=== PATIENT | male | born 1965 | race Two or more races ===

== ENCOUNTER 2018-11-09 07:29 | Day surgery (SDC) | payer OTHER ==
[~2018-11-09] VITALS: Ht 175.3 cm; Wt 119.0 kg
--- NOTE | 2018-11-09 08:55 | PREAC ---
Date/Time of Note Date/Time of Note DATE: 11/09/18 TIME: 08:54 Anesthesia Eval and Record Evaluation Time Pre-Procedure Interview DATE: 11/09/18 TIME: 08:54 Age 53 Sex male NPO: 8 hrs Preoperative diagnosis screening Planned procedure colonoscopy Past Medical History Past Medical History: Includes Cardio: Dyslipidemia GI: Obesity Surgery & Anesthesia Issues No known issue Meds Anticoagulation: No Beta Sara within 24 hr: No Reason Beta Sara not given: Pt. not on B-Sara Meds reviewed: Yes Allergies Coded Allergies: No Known Allergy (Unverified , 02/08/15) Allergies Reviewed: Yes Labs/Studies Labs Reviewed: Reviewed by anesthesiologist test: N/A Studies: ECG (n/a), CXR (n/a) Pre-procedure Exam Airway: Adequate mouth opening Mallampati: Mallampati I Teeth: Normal Lung: Normal Heart: Normal ASA Physical Status ASA physical status: 2 Emergency: None Planned Pain Management Parenteral pain med Pre-operative Attestations Prior to commencing anesthesia and surgery, the patient was re-evaluated, there was verification of: *The patient's identity *The results of appropriate recent lab work and preoperative vital signs *The above evaluation not changing prior to induction *Anesthetic plan, risk benefits, alternative and complications discussed with patient/family; questions answered; patient/family understands, accepts and wishes to proceed. LUCITA LOUIS MD Nov 09, 2018 08:55
[2018-11-09 08:56] VITALS: Ht 175.3 cm; Wt 119.0 kg
[2018-11-09] MEDS ORDERED: PROPOFOL 20 ML ONE (08:58)
[2018-11-09] MEDS ORDERED: FENTAnyl 50 MCG/ML VIAL ONE (08:58)
[2018-11-09] MEDS ORDERED: ATORVASTATIN (09:00)
[2018-11-09 09:06] VITALS: BP 125/63; PULSE 72; RESP 14
--- NOTE | 2018-11-09 10:08 | PAC ---
Date/Time of Note Date/Time of Note DATE: 11/09/18 TIME: 10:08 Post-Anesthesia Notes Post-Anesthesia Note Last documented vital signs Vital Signs Date Temp Pulse Resp B/P (MAP) Pulse Ox O2 O2 Flow FiO2 Time Delivery Rate 11/09/18 97.9 72 14 125/63 94 Room Air 09:06 (83) Activity: WNL Respiratory function: WNL Cardiovascular function: WNL Mental status: Baseline Pain reasonably controlled: Yes Hydration appropriate: Yes Nausea/Vomiting absent: No LUCITA LOUIS MD Nov 09, 2018 10:08
[2018-11-09 10:20] VITALS: BP 129/71; PULSE 71; RESP 20
== END 2018-11-09 11:29 | disposition home or self-care (01) ==
LOC: GIL 07:29
PROVIDERS: ATTEND Internal Medicine Gastroenterology
DX: Z12.11 Encounter for screening for malignant neoplasm of colon (principal); K62.1 Rectal polyp; K64.8 Other hemorrhoids; E78.5 Hyperlipidemia, unspecified; E66.9 Obesity, unspecified; Z68.38 Body mass index [BMI] 38.0-38.9, adult
CPT/HCPCS: 45380; J3010; Z7610; 88305